=== PATIENT | female | born 1935 | race Caucasian/White ===

== ENCOUNTER → 2016-04-23 23:25 | Emergency (ER) | payer MEDICARE, BC ==
[~2016-04-23 23:25] MED LIST: ALLERGY PO; ALPRAZOLAM PO; ALPRAZOLAM0.5 MG PO; ALTACE PO; ALTACE10 MG PO; AMITRYPTYLINE PO; ASPIRIN PO; ASPIRIN81 M2 PO; B-COMPLEX-VITA1 EACH PO; BIOTIN5 MG PO; CALCIUM + D 6001 TA1 PO; CALCIUM 600 +1 EAC3 PO; CALCIUM 600 W/D1 TA1 PO; CELEBREX PO; CLARITIN D PO; CRESTOR PO; DARVOCET-N 1001 TAB PO; HCTZ PO; HYDROCHLOROTHIA25 MG PO; IRON PO; IRON1 TA1 PO; ISORDIL5 MG PO; ISOSORBIDE MONO10 MG PO; METOPROLOL TAR25 MG PO; MULTIVITAMIN1 UDCAP PO; NORCO 5/325 TAB1 TAB PO; PANTOPRAZOLE SO40 MG PO; PLAVIX PO; PRESERVISION A1 EAC3 PO; PRESERVISION1 EA PO; PRILOSEC20 MG PO; PROTONIX PO; TRAMADOL HCL50 M1 PO; VITAMIN B12-FO1 EACH PO; VITAMIN C1000 M2 PO; VITAMIN D5000 UNIT PO; XANAX XR0.5 MG PO; [UNRECOGNIZED DRUG - OTHER] PO
== END | disposition left against medical advice (07) ==
LOC: CED 23:25
DX: Z53.21 Procedure and treatment not carried out due to patient leaving prior to being seen by health care provider (principal)